=== PATIENT | female | born 1945 | race Caucasian/White ===

== ENCOUNTER 2018-06-11 06:13 | Day surgery (SDC) | payer MEDICARE ==
[~2018-06-11] VITALS: Ht 172.7 cm; Wt 62.1 kg
[~2018-06-11 06:13] MED LIST: BUSP5 PO
[2018-06-12] MEDS ORDERED: Coq-10100 MG PO (13:34)
[2018-06-12] MEDS ORDERED: CALCIUM-MAG-ZINC PO (13:37)
[2018-06-12] MEDS ORDERED: FOLI400 PO (13:38)
[2018-06-12] MEDS ORDERED: NATTOKINASE PO (13:39)
[2018-06-12] MEDS ORDERED: Red Yeast Rice600 MG PO (13:40)
== END 2018-06-11 22:42 | disposition home or self-care (01) ==
LOC: ORSCMMR 06:13 → ORD 07:30 → ORSCMMR 07:30
PROVIDERS: Surgery
PROC: 0DBM8ZX Excision of Descending Colon, Via Natural or Artificial Opening Endoscopic, Diagnostic (ICD-10-PCS; principal; 2018-06-11 07:30)
DX: R93.3 Abnormal findings on diagnostic imaging of other parts of digestive tract (principal); K63.5 Polyp of colon; R59.0 Localized enlarged lymph nodes; K58.9 Irritable bowel syndrome, unspecified; E78.5 Hyperlipidemia, unspecified
CPT/HCPCS: 88305; J7120

== ENCOUNTER 2018-06-11 10:56 | Inpatient (IN) | payer MEDICARE ==
[~2018-06-11] VITALS: Ht 172.7 cm; Wt 59.5 kg
[2018-06-12] MEDS ORDERED: Coq-10100 MG PO (13:34)
[2018-06-12] MEDS ORDERED: CALCIUM-MAG-ZINC PO (13:37)
[2018-06-12] MEDS ORDERED: FOLI400 PO (13:38)
[2018-06-12] MEDS ORDERED: NATTOKINASE PO (13:39)
[2018-06-12] MEDS ORDERED: Red Yeast Rice600 MG PO (13:40)
[2018-06-14 06:02] LABS: BASOPHILS ABSOLUTE AUTO 0.02 K/mm3 (0.00-0.23); BASOPHILS PERCENT AUTO 0 % (0-2); EOSINOPHILS ABSOLUTE AUTO 0.02 K/mm3 (0.00-0.68); EOSINOPHILS PERCENT AUTO 0 % (0-6); Hematocrit 35.2 % (33.0-51.0); Hemoglobin 11.9 g/dL (11.5-16.0); IMMATURE GRAN ABSOLUTE AUTO 0.02 K/mm3 (0.00-0.10); IMMATURE GRAN PERCENT AUTO 0 % (0-1); LYMPHOCYTES ABSOLUTE AUTO 1.45 K/mm3 (0.84-5.20); LYMPHOCYTES PERCENT AUTO 17 % (21-46); MONOCYTES ABSOLUTE AUTO 0.48 K/mm3 (0.16-1.47); MONOCYTES PERCENT AUTO 6 % (4-13); Mean Corpuscular HGB 31.8 pg (26.0-34.0); Mean Corpuscular HGB Conc 33.8 g/dL (31.5-36.5); Mean Corpuscular Volume 94 fL (80-100); Mean Platelet Volume 10.7 fL (9.1-12.4); NEUTROPHILS ABSOLUTE AUTO 6.75 K/mm3 (1.96-9.15); NEUTROPHILS PERCENT AUTO 77 % (41-73); Platelet Count 236 K/mm3 (150-400); RDW Coefficient Variation 12.2 % (11.7-14.2); RDW Standard Deviation 42.5 fL (35.1-46.3); Red Blood Cell Count 3.74 M/mm3 (3.80-5.20); White Blood Cell Count 8.74 K/mm3 (4.00-11.30)
[2018-06-14 06:15] LABS: Anion Gap 9 mmol/L (6-16); Blood Urea Nitrogen 12 mg/dL (8-24); Bun/Creatinine Ratio 17.3 (12.0-20.0); CO2, Blood 23 mmol/L (21-32); Calcium, Blood 7.8 mg/dL (8.5-10.1); Chloride, Blood 98 mmol/L (98-108); Creatinine, Blood 0.69 mg/dL (0.40-1.00); Glomerular Filtration Rate >60 (60-); Glucose, Blood 103 mg/dL (70-99); Magnesium, Blood 1.7 mg/dL (1.6-2.4); Phosphorus, Blood 2.1 mg/dL (2.5-4.9); Potassium, Blood 3.8 mmol/L (3.5-5.5); Sodium, Blood 130 mmol/L (136-145)
[2018-06-16] MEDS ORDERED: KETO10 PO (12:24)
== END 2018-06-16 12:59 | disposition home or self-care (01) | DRG 395 ==
LOC: PRE IP 06-12 07:30 → SURS 06-12 12:05
PROVIDERS: Surgery
PROC: 0DB84ZX Excision of Small Intestine, Percutaneous Endoscopic Approach, Diagnostic (ICD-10-PCS; principal; 2018-06-12 16:15)
DX: K63.9 Disease of intestine, unspecified (principal); K58.9 Irritable bowel syndrome, unspecified; K57.90 Diverticulosis of intestine, part unspecified, without perforation or abscess without bleeding; R59.0 Localized enlarged lymph nodes; F41.9 Anxiety disorder, unspecified; G25.0 Essential tremor; E78.2 Mixed hyperlipidemia
CPT/HCPCS: 36415; 80048; 83735; 84100; 85025; 88309; J1100; J1170; J1885; J1956; J2250; J2405; J2710; J2765; J3010; J7030; J7060; J7120

== ENCOUNTER 2018-09-24 22:46 | Emergency (ER) | payer MEDICARE ==
[~2018-09-24] VITALS: Ht 172.7 cm; Wt 55.3 kg
[~2018-09-24 22:46] MED LIST changes: +CALCIUM-MAG-ZINC PO; +Coq-10100 MG PO; +FOLI400 PO; +KETO10 PO; +NATTOKINASE PO; +Prilosec Otc20 MG PO; +Red Yeast Rice600 MG PO
[2018-10-17] MEDS ORDERED: PRAVASTATIN SOD10 MG PO (07:59)
[2018-10-17] MEDS ORDERED: Carafate1 GM/10 ML PO (08:00)
[2018-10-17] MEDS ORDERED: Bentyl10 MG (08:00)
[2018-10-17] MEDS ORDERED: Ginger250 MG (08:01)
[2018-10-17] MEDS ORDERED: [UNRECOGNIZED DRUG - OTHER] PO (08:01)
[2018-10-17] MEDS ORDERED: Red Yeast Rice600 MG PO (08:02)
[2018-10-17] MEDS ORDERED: NATTOKINASE PO (08:03)
== END 2018-09-25 00:22 | disposition home or self-care (01) ==
LOC: ER 22:46
DX: K29.00 Acute gastritis without bleeding (principal); Z88.0 Allergy status to penicillin; Z79.899 Other long term (current) drug therapy; I10 Essential (primary) hypertension; Z85.038 Personal history of other malignant neoplasm of large intestine
CPT/HCPCS: 36415; 80053; 83690; 85025; 99283

== ENCOUNTER 2018-10-18 20:57 | Emergency (ER) | payer MEDICARE ==
[~2018-10-18] VITALS: Ht 172.7 cm; Wt 54.9 kg
[~2018-10-18 20:57] MED LIST changes: +Bentyl10 MG; +Carafate1 GM/10 ML PO; +Ginger250 MG; +PRAVASTATIN SOD10 MG PO; +[UNRECOGNIZED DRUG - OTHER] PO
[2018-10-18 22:38] LABS: BASOPHILS ABSOLUTE AUTO 0.03 K/mm3 (0.00-0.23); BASOPHILS PERCENT AUTO 0 % (0-2); EOSINOPHILS ABSOLUTE AUTO 0.12 K/mm3 (0.00-0.68); EOSINOPHILS PERCENT AUTO 2 % (0-6); Hematocrit 34.7 % (33.0-51.0); Hemoglobin 11.6 g/dL (11.5-16.0); IMMATURE GRAN ABSOLUTE AUTO 0.01 K/mm3 (0.00-0.10); IMMATURE GRAN PERCENT AUTO 0 % (0-1); LYMPHOCYTES ABSOLUTE AUTO 2.56 K/mm3 (0.84-5.20); LYMPHOCYTES PERCENT AUTO 37 % (21-46); MONOCYTES ABSOLUTE AUTO 0.34 K/mm3 (0.16-1.47); MONOCYTES PERCENT AUTO 5 % (4-13); Mean Corpuscular HGB 30.9 pg (26.0-34.0); Mean Corpuscular HGB Conc 33.4 g/dL (31.5-36.5); Mean Corpuscular Volume 93 fL (80-100); Mean Platelet Volume 10.2 fL (9.1-12.4); NEUTROPHILS ABSOLUTE AUTO 3.83 K/mm3 (1.96-9.15); NEUTROPHILS PERCENT AUTO 56 % (41-73); Platelet Count 266 K/mm3 (150-400); RDW Coefficient Variation 12.2 % (11.7-14.2); RDW Standard Deviation 41.2 fL (35.1-46.3); Red Blood Cell Count 3.75 M/mm3 (3.80-5.20); White Blood Cell Count 6.89 K/mm3 (4.00-11.30)
[2018-10-18 22:51] LABS: Alanine Aminotransfer (ALT/SGP 47 U/L (12-78); Albumin, Blood 3.5 g/dL (3.4-5.0); Alk Phos 76 U/L (50-136); Anion Gap 9 mmol/L (6-16); Aspartate Aminotrans (AST/SGOT 23 U/L (12-37); Bilirubin, Total 0.3 mg/dL (0.1-1.0); Blood Urea Nitrogen 16 mg/dL (8-24); Bun/Creatinine Ratio 18.9 (12.0-20.0); CO2, Blood 27 mmol/L (21-32); Calcium, Blood 8.8 mg/dL (8.5-10.1); Chloride, Blood 107 mmol/L (98-108); Creatinine, Blood 0.85 mg/dL (0.40-1.00); Globulin, Blood 3.4 g/dL (2.2-4.0); Glomerular Filtration Rate >60 (60-); Glucose, Blood 119 mg/dL (70-99); Potassium, Blood 3.5 mmol/L (3.5-5.5); Sodium, Blood 143 mmol/L (136-145); Total Protein, Blood 6.9 g/dL (6.4-8.2)
[2018-10-18] MEDS ORDERED: ONDA4ODT MM (23:38)
== END 2018-10-18 23:50 | disposition home or self-care (01) ==
LOC: ER 20:57
PROVIDERS: Emergency Medicine
DX: R10.13 Epigastric pain (principal); R11.0 Nausea; I10 Essential (primary) hypertension; Z88.0 Allergy status to penicillin; Z79.899 Other long term (current) drug therapy; Z85.038 Personal history of other malignant neoplasm of large intestine
CPT/HCPCS: 36415; 74018; 80053; 83690; 85025; 96374; 96375; 99283-25; J2405

== ENCOUNTER 2018-10-22 10:51 | Day surgery (SDC) | payer MEDICARE ==
[~2018-10-22] VITALS: Ht 172.7 cm; Wt 54.5 kg
[~2018-10-22 10:51] MED LIST changes: +ONDA4ODT MM
== END 2018-10-22 12:10 | disposition home or self-care (01) ==
LOC: ORSCSDS 10:51
PROVIDERS: Surgery
PROC: 0DB98ZX Excision of Duodenum, Via Natural or Artificial Opening Endoscopic, Diagnostic (ICD-10-PCS; principal; 2018-10-22 12:00)
PROC: 0DB58ZX Excision of Esophagus, Via Natural or Artificial Opening Endoscopic, Diagnostic (ICD-10-PCS; principal; 2018-10-22 12:00)
PROC: 0DB68ZX Excision of Stomach, Via Natural or Artificial Opening Endoscopic, Diagnostic (ICD-10-PCS; principal; 2018-10-22 12:00)
DX: K29.70 Gastritis, unspecified, without bleeding (principal); R11.2 Nausea with vomiting, unspecified; K29.80 Duodenitis without bleeding; Z79.899 Other long term (current) drug therapy
CPT/HCPCS: 88305; 88342; J7120

== ENCOUNTER 2018-11-14 07:40 | Emergency (ER) | payer MEDICARE ==
[~2018-11-14] VITALS: Ht 172.7 cm; Wt 53.5 kg
[2018-11-14 09:00] LABS: BASOPHILS ABSOLUTE AUTO 0.03 K/mm3 (0.00-0.23); BASOPHILS PERCENT AUTO 0 % (0-2); EOSINOPHILS ABSOLUTE AUTO 0.01 K/mm3 (0.00-0.68); EOSINOPHILS PERCENT AUTO 0 % (0-6); Hematocrit 36.6 % (33.0-51.0); Hemoglobin 12.8 g/dL (11.5-16.0); IMMATURE GRAN ABSOLUTE AUTO 0.01 K/mm3 (0.00-0.10); IMMATURE GRAN PERCENT AUTO 0 % (0-1); LYMPHOCYTES ABSOLUTE AUTO 1.23 K/mm3 (0.84-5.20); LYMPHOCYTES PERCENT AUTO 16 % (21-46); MONOCYTES ABSOLUTE AUTO 0.28 K/mm3 (0.16-1.47); MONOCYTES PERCENT AUTO 4 % (4-13); Mean Corpuscular HGB 30.8 pg (26.0-34.0); Mean Corpuscular Volume 88 fL (80-100); Mean Platelet Volume 10.5 fL (9.1-12.4); NEUTROPHILS ABSOLUTE AUTO 6.39 K/mm3 (1.96-9.15); NEUTROPHILS PERCENT AUTO 80 % (41-73); Platelet Count 266 K/mm3 (150-400); RDW Coefficient Variation 12.3 % (11.7-14.2); RDW Standard Deviation 39.3 fL (35.1-46.3); Red Blood Cell Count 4.16 M/mm3 (3.80-5.20); White Blood Cell Count 7.95 K/mm3 (4.00-11.30)
[2018-11-14 09:34] LABS: Alanine Aminotransfer (ALT/SGP 27 U/L (12-78); Albumin, Blood 3.6 g/dL (3.4-5.0); Albumin/Globulin Ratio 1.1 (0.8-1.8); Alk Phos 67 U/L (50-136); Anion Gap 7 mmol/L (6-16); Aspartate Aminotrans (AST/SGOT 21 U/L (12-37); Bilirubin, Total 0.5 mg/dL (0.1-1.0); Blood Urea Nitrogen 13 mg/dL (8-24); Bun/Creatinine Ratio 15.4 (12.0-20.0); CO2, Blood 26 mmol/L (21-32); Calcium, Blood 9.4 mg/dL (8.5-10.1); Chloride, Blood 104 mmol/L (98-108); Creatinine, Blood 0.85 mg/dL (0.40-1.00); Globulin, Blood 3.4 g/dL (2.2-4.0); Glomerular Filtration Rate >60 (60-); Glucose, Blood 105 mg/dL (70-99); Sodium, Blood 137 mmol/L (136-145)
[2018-11-14] MEDS ORDERED: ONDA4ODT MM (10:13)
[2018-11-14] MEDS ORDERED: FAMO20 PO (10:13)
== END 2018-11-14 10:22 | disposition home or self-care (01) ==
LOC: ER 07:40
PROVIDERS: Emergency Medicine
DX: K29.70 Gastritis, unspecified, without bleeding (principal); K29.80 Duodenitis without bleeding; Z88.0 Allergy status to penicillin; Z79.899 Other long term (current) drug therapy; I10 Essential (primary) hypertension
CPT/HCPCS: 36415; 80053; 83690; 85025; 96361; 96374; 96375; 99284-25; J2405; J3010; J7030

== ENCOUNTER 2018-12-20 22:37 | Observation (INO) | payer MEDICARE ==
[~2018-12-20] VITALS: Ht 172.7 cm; Wt 55.3 kg
[~2018-12-20 22:37] MED LIST changes: +FAMO20 PO
[2018-12-20 23:59] LABS: BASOPHILS ABSOLUTE AUTO 0.03 K/mm3 (0.00-0.23); BASOPHILS PERCENT AUTO 0 % (0-2); EOSINOPHILS PERCENT AUTO 1 % (0-6); Hematocrit 37.2 % (33.0-51.0); Hemoglobin 12.5 g/dL (11.5-16.0); IMMATURE GRAN ABSOLUTE AUTO 0.02 K/mm3 (0.00-0.10); IMMATURE GRAN PERCENT AUTO 0 % (0-1); LYMPHOCYTES ABSOLUTE AUTO 2.22 K/mm3 (0.84-5.20); LYMPHOCYTES PERCENT AUTO 25 % (21-46); MONOCYTES ABSOLUTE AUTO 0.41 K/mm3 (0.16-1.47); MONOCYTES PERCENT AUTO 5 % (4-13); Mean Corpuscular HGB 30.9 pg (26.0-34.0); Mean Corpuscular HGB Conc 33.6 g/dL (31.5-36.5); Mean Corpuscular Volume 92 fL (80-100); Mean Platelet Volume 10.1 fL (9.1-12.4); NEUTROPHILS ABSOLUTE AUTO 6.28 K/mm3 (1.96-9.15); NEUTROPHILS PERCENT AUTO 69 % (41-73); Platelet Count 270 K/mm3 (150-400); RDW Coefficient Variation 12.8 % (11.7-14.2); RDW Standard Deviation 43.3 fL (35.1-46.3); Red Blood Cell Count 4.05 M/mm3 (3.80-5.20); White Blood Cell Count 9.06 K/mm3 (4.00-11.30)
[2018-12-21 00:19] LABS: Alanine Aminotransfer (ALT/SGP 57 U/L (12-78); Albumin, Blood 3.9 g/dL (3.4-5.0); Albumin/Globulin Ratio 1.2 (0.8-1.8); Alk Phos 70 U/L (50-136); Anion Gap 8 mmol/L (6-16); Aspartate Aminotrans (AST/SGOT 30 U/L (12-37); Bilirubin, Total 0.4 mg/dL (0.1-1.0); Blood Urea Nitrogen 17 mg/dL (8-24); Bun/Creatinine Ratio 24.7 (12.0-20.0); CO2, Blood 26 mmol/L (21-32); Calcium, Blood 9.2 mg/dL (8.5-10.1); Chloride, Blood 106 mmol/L (98-108); Creatinine, Blood 0.69 mg/dL (0.40-1.00); Globulin, Blood 3.3 g/dL (2.2-4.0); Glomerular Filtration Rate >60 (60-); Glucose, Blood 116 mg/dL (70-99); Potassium, Blood 3.6 mmol/L (3.5-5.5); Sodium, Blood 140 mmol/L (136-145); Total Protein, Blood 7.2 g/dL (6.4-8.2)
[2018-12-21] MEDS ORDERED: [UNRECOGNIZED DRUG - OTHER] (00:56)
--- NOTE | 2018-12-21 07:10 | NUR ---
SUMMARY PT ADMITTED DURING NIGHT WITH SBO TO [facility]. SURG CX ORDERED. PT REPORTED PAIN RESOLVED PRIOR TO ARIVAL TO FLOOR. NO C/O NAUSEA ON ARRIVAL IV FLUIDS RUNNING AT 200 ML /HR.
--- NOTE | 2018-12-21 07:20 | NUR ---
PT IN BED AWAKE STATED SHE HAS OFF AND ON ABD PAIN UPPER ABD AND YESTERDAY HAD 3 LOOSE STOOL AND HAD ABD PAIN PRIOR TO EACH BM WITH STRONG ODOR AND LOTS OF FLATUS PT TIM GUEVARA IF AVAIL DUE TO HX WITH SURGEON PAST SURGDR SCHWARTZ [employer] SUPER[employer] TODAY WILL WAIT UNTIL 0900 TO CALL THE OFFICE AND ASK
--- NOTE | 2018-12-21 13:00 | NUR ---
RECVD REPORT FROM WILLIAM DERAS, ASSUMED CARE OF PT
--- NOTE | 2018-12-21 13:37 | NUR ---
pt taylor in [facility] talked with dr estrada report given to karly torres
--- NOTE | 2018-12-21 14:00 | NUR ---
DR SCHWARTZ TO ROUND ON PT
--- NOTE | 2018-12-21 16:20 | NUR ---
pt provided with discharge instructions and printed material, peripheral IV removed wnl. pt's belongings taken to vehicle by her daughter. pt escorted to awaiting vehicle via wheelchair
--- NOTE | 2018-12-21 18:39 | NUR ---
SHIFT SUMMARY: VSS, NO ACUTE CHANGES. PT TOLERATED CLEAR LIQUID DIET ADVANCEMENT WITH NO N/V, NO PAIN. PT AMBULATED IN HALLWAY MULTIPLE TIMES TODAY, TOLERATED WELL. PT STATES NO BM BUT HAS PAST FLATUS. PT REMAINED A/0 X 4, PLEASANT/COOPERATIVE. DR SCHWARTZ ROUNDED ON PT, RELAYED RESULTS OF CT WHICH HE SAYS "LOOK GOOD", NON-SURGICAL APPROACH. PT STATES SHE HAS NO PAIN, FEELS MUCH BETTER
--- NOTE | 2018-12-22 07:27 | NUR ---
SUMMARY: NO CHANGE THIS SHIFT. VSS, PT IS NON-SURGICAL. HAS DENIED N/V, PAIN. UP INDEPENDENTLY. REPORTS PASSING GAS, NO BM THIS SHIFT. NO SAFETY CONCERNS AT THIS TIME
--- NOTE | 2018-12-22 15:21 | NUR ---
PT DISCHARGED TO HOME WITH . PT WALKED OUT. IV TAKEN OUT. MEDS FAXED TO [facility]. PT VERBALIZED UNDERSTANDING OF DISCHARGE INFO.
== END 2018-12-22 13:00 | disposition home or self-care (01) ==
LOC: ER 22:37 → SURS 22:38
PROVIDERS: Emergency Medicine; ADMIT Hospitalist
DX: K56.600 Partial intestinal obstruction, unspecified as to cause (principal); R03.0 Elevated blood-pressure reading, without diagnosis of hypertension; E78.5 Hyperlipidemia, unspecified; Z88.0 Allergy status to penicillin; Z79.899 Other long term (current) drug therapy; Z90.49 Acquired absence of other specified parts of digestive tract; Z85.060 Personal history of malignant carcinoid tumor of small intestine
CPT/HCPCS: 36415; 74022; 74177; 80053; 83690; 84484; 85025; 93005; 93010; 96374-59; 99285-25; J1170; J1650; J2405; J7030; Q9967